=== PATIENT | female | born 1970 | race Caucasian/White ===

== ENCOUNTER 2024-07-24 16:21 | Emergency (ER) | payer BC, SELFPAY ==
[2024-07-24 16:24] VITALS: BP 115/74
[2024-07-24 16:38] LABS: % Basophils 0.1 % (0-2); % Eosinophils 6.4 % (0-6); % Immature Granulocytes 0.2 % (0-0.5); % Lymphocytes 19.1 % (20.5-51.1); % Monocytes 5.3 % (1.7-9.3); % Neutrophils 68.9 % (42.2-75.2); Absolute Eosinophils 0.6 10^3/uL (0-0.7); Absolute Lymphocytes 1.7 10^3/uL (1.2-3.4); Absolute Monocytes 0.5 10^3/uL (0.1-0.6); Absolute Neutrophils 6.1 10^3/uL (1.4-6.5); Hematocrit 39.7 % (37.0-47.0); Hemoglobin 13.8 g/dL (12.0-16.0); Mean Corp Hgb Conc. 34.8 g/dL (33.0-37.0); Mean Corpuscular Hgb 31.4 pg (27.0-31.0); Mean Corpuscular Volume 90.2 fL (81.0-99.0); Mean Platelet Volume 11.3 fL (7.4-10.4); Nucleated Red Blood Cells % 0 %; Platelet Count 218 10^3/uL (130-400); Red Cell Dist. Width 12.6 % (11.5-14.5); White Blood Cell Count 8.9 10^3/uL (4.8-10.8)
[2024-07-24 16:51] LABS: ALT (SGPT) 15 U/L (0-35); AST (SGOT) 17 U/L (14-36); Albumin 4.4 g/dl (3.5-5.0); Alkaline Phosphatase 70 U/L (38-126); Blood Urea Nitrogen 19 mg/dl (7-17); Calcium 9.1 mg/dl (8.4-10.2); Carbon Dioxide 29 mmol/L (22-30); Chloride 108 mmol/L (98-107); Glucose 106 mg/dl (70-99); Potassium 3.8 mmol/L (3.5-5.1); Sodium 142 mmol/L (135-145); Total Bilirubin 0.9 mg/dl (0.2-1.3); Total Protein 6.9 g/dl (6.3-8.2); eGFR > 60.00
[2024-07-24 17:28] VITALS: BP 116/91
--- NOTE | 2024-07-24 17:29 | ED.GENMED ---
History of Present Illness
General
Chief Complaint: Abdominal Symptoms
Source: patient
Exam Limitations: none
Time Seen by Provider: 07/24/24 17:15
Nursing documentation reviewed up to this point in time: agreed with
History of Present Illness
History of Present Illness:
Patient is a 53-year-old female with history asthma who presents to the emergency department with 1 week of nausea, vomiting, and anorexia. Patient states she has been unable to keep food or liquid down since last Tuesday and has been vomiting
about twice daily. In addition�she reports vague lower abdominal pain as well as very little appetite. She has had intermittent chills/hot flashes which she was attributing to perimenopause. She reports loose stools over the past week although
denies any hematochezia or melena. No urinary symptoms. No chest pain or shortness of breath.
Patient has been on Wegovy for a few years now. She recently increased her dose about 2 months ago and is currently at the maximum dose. She is felt somewhat unwell following the last few injections and is wondering if the symptoms may be related
to Wegovy. Her last injection was this past 07/20/24. This is prescribed by her primary care provider.
Patient denies any recent travel or recent surgeries. No antibiotics. No known sick contacts.
Patient had an ovarian cyst removed many years ago although denies any other abdominal surgeries.
Past History
Past History
ED Past Medical History: Other (Ovarian cysts)
ED Past Surgical History: None
Social History
Tobacco: Non-smoker
Drug: None
Living: with family
Employment: Employed
Family History
Family History: Other (No significant)
Review of Systems
Review of Systems
Allergies reviewed?: Yes
All Other Systems: ROS reviewed and negative except as documented in HPI and ROS
Phy Exam
Physical Exam
Physical Exam:
Vitals: Patient's vital signs are stable. Afebrile
General: Patient is well appearing, no acute distress. Nontoxic appearing
Skin: Warm and dry, no rashes or lesions
Head: Normocephalic, atraumatic
Eyes: Sclera nonicteric.
Throat: Protecting airway
Neck: Normal ROM, no cervical spine tenderness, no meningismus
Cardiac: Regular rate and rhythm, no murmurs.
Pulm: Normal respiratory effort, no wheezes, rales, rhonchi heard on exam
.
Abdomen: Abdomen soft. Mild tenderness in RLQ> LLQ. No rebound tenderness or guarding. Negative Snow sign.
Extremities: No evidence of cyanosis or edema
Neuro: AAOx3. CN II-XII intact. No focal neurologic deficits.
Psychiatric: Normal affect.
Course
Orders/Labs/Results
Orders:
Orders
07/24/24 16:28
Complete Blood Count/With Diff Urgent
Comprehensive Metabolic Panel Urgent
HCG, Serum Qualitative Screen Urgent
Comment: ADD ON
Lipase Urgent
Comment: ADD ON
07/24/24 17:27
Add On- LAB Urgent
Tests Added?: lipase
CT Abd/pelvis W Iv Cont Urgent
Comment:
Reason For Exam: RLQ pain, anorexia, vomiting
0.9% Sodium Chloride 1000 ml [Nss] 1,000 ml IV BOLUS
Ondansetron Injectable [Zofran] 4 mg IV NOW STA
07/24/24 17:28
Ketorolac [Toradol] 15 mg IV NOW STA
07/24/24 17:51
Electrocardiogram (*1) Urgent
Reason for Study: Abdominal Pain
EKG- Treatment ONCE
07/24/24 17:57
Add On- LAB Urgent
Tests Added?: serum hcg
07/24/24 19:23
Urinalysis Reflex To Culture Urgent
Date Specimen was Collected: 07/24/24
Time Specimen was Collected: 19:19
Urine Microscopic Reflex Cult Urgent
Urine Culture Urgent
BASSEM Source: U
Specimen Description:
Date Specimen was Collected: 07/24/24
Time Specimen was Collected: 19:19
07/24/24 20:09
0.9% Sodium Chloride 500 ml [Nss] 500 ml IV BOLUS
Metoclopramide [Reglan] 10 mg IV NOW STA
07/24/24 20:10
Diphenhydramine [Benadryl] 25 mg IV NOW STA
Abnormal Lab Results
07/24/24 07/24/24
16:28 19:23
MCH 31.4 H pg
(27.0-31.0)
MPV 11.3 H fL
(7.4-10.4)
Lymphocytes % 19.1 L %
(20.5-51.1)
Eosinophils % 6.4 H %
(0-6)
Chloride 108 H mmol/L
(98-107)
BUN 19 H mg/dl
(7-17)
Glucose 106 H mg/dl
(70-99)
Urine Bilirubin 1+ A
(Negative)
Urine Urobilinogen 2+ A
(Neg - 1+)
Leukocyte Esterase Rfl 1+ A
(Negative)
Urine Bacteria (Reflex) Few A
(Negative)
Urine Albumin (Reflex) 2+ A
(Neg - Trace)
07/24/24 16:28
07/24/24 16:28
Vital Signs
Initial and Last Documented VS:
Initial Vital Signs
Temp Pulse Resp BP Pulse Ox
98.5 F 76 16 115/74 96
07/24/24 16:24 07/24/24 16:24 07/24/24 16:24 07/24/24 16:24 07/24/24 16:24
Last Documented Vital Signs
Temp Pulse Resp BP Pulse Ox
98.5 F 83 19 140/87 96
07/24/24 16:24 07/24/24 21:32 07/24/24 21:32 07/24/24 21:32 07/24/24 21:32
MDM/Problems Addressed
Differential Diagnosis Includes:
Not limited to: Medication side effect, viral gastroenteritis, acute appendicitis, acute dehydration, bowel obstruction, etc.
MDM/Problems Addressed:
53-year-old female with history as documented presenting with 6 days of intractable nausea, vomiting, anorexia. No known fevers. She does report some mild lower abdominal pain. No urinary symptoms. No chest pain or shortness of breath. She did have
recent increase in Wegovy 1-2 months ago. Vitals and physical exam as above.
Differential broad although given tenderness in right lower abdomen, will check CT scan to rule out appendicitis or other acute intra-abdominal process. Lab work obtained in triage relatively unremarkable other than findings of mild dehydration.
Will check lipase and urinalysis. Will give IV fluids, IV Zofran and reasses.
Update: CT scan without any acute abnormalities. Lipase is normal. Unfortunately � patient vomited immediately following PO challenge. Will give IV Reglan, another 500 of IV fluids and reassess. Urine does not appear obviously infected and pt has no
urinary complaints. Will hold abx pending culture
Update: Patient feeling better after IV reglan and was able to tolerate water and crackers without nausea/vomiting. Ultimately � workup in emergency department negative. Much lower suspicion for acute intra-abdominal infection given patient is
afebrile with no leukocytosis and normal CT scan. Symptoms possibly secondary to Wegovy or a viral illness. Discussed admission for IV hydration, IV antiemetics with patient although patient prefers discharge home. Advised patient to stay well
hydrated with very strict return precautions. Discussed d/c Wegovy until cleared by primary care. Patient comfortable with plan. She will follow with primary care outpatient.
Chronic conditions affecting care:
N/A
Acute Exacerbation and/or Progression of Chronic Illness:
N/A
*Radiology
Radiology exam reviewed: radiology read reviewed
*Pulse Oximetry
Patient hypoxic: no
*EKG
Interpreted by ED Provider?: NA
*Management Expert Interpretation
Rate: Management Expert- N/A
*Critical Care Note
Total Time (30-74mins, 75-104mins- exclusive of procedures): Not Applicable
ED Attending Note
-
Portions of this chart may have been created with voice recognition software.� Occasional wrong word or��sound alike� substitutions may have occurred due to the inherent limitations of voice recognition software.
Discharge Plan
Departure
Patient Disposition: Home (Routine Discharge)
Date of Disposition: 07/24/24
Time of Disposition: 21:24
Patient with high blood pressure during this ER visit?: Yes
Condition: Good
Covid-19: Not Applicable
Discharge Problem:
Nausea & vomiting
Instructions: Dehydration, Adult (DC), Nausea and Vomiting, Adult (DC), BLOOD PRESSURE
Prescriptions:
New
metoclopramide HCl [Reglan] 10 mg tablet
10 mg PO Q6H PRN (Reason: nausea and vomiting) Qty: 7 0RF
Referrals:
Jennifer Snow PA-C [Family Provider] -
Activity Restrictions/Additional Instructions:
RETURN TO THE EMERGENCY DEPARTMENT ANY FEVERS/CHILLS, INTRACTABLE NAUSEA/VOMITING, PERSISTENT ABDOMINAL PAIN, SIGNS OF SEVERE DEHYDRATION, PERSISTENT LACK OF APPETITE, WORSENING CURRENT SYMPTOMS, OR ANY OTHER CONCERNS
-As discussed�your lab work and CT scan to the emergency department showed no acute abnormalities. You were given a liter of IV fluids, IV Zofran, and IV Reglan.
- It is important stay very well-hydrated. I would recommend a bland diet over the next few days.
- A prescription for Reglan has been sent to your pharmacy. You can take this as needed for persistent nausea/vomiting.
- Please avoid any further Wegovy injections until cleared by primary care.
- Follow-up with primary care for further evaluation/management to ensure that symptoms are improving
Monitor your symptoms closely and return to the emergency department with any acute worsening/new symptoms or any other concerns
Interventions
Interventions:
*Risk Screen - Suicide Last Done: 07/24/24 17:31
*General Assessment Last Done: 07/24/24 17:31
*Neglect/Abuse Screening Last Done: 07/24/24 17:31
*ED- Fall Risk Assessment Last Done: 07/24/24 21:33
*ED COVID-19 Vaccine History Last Done: 07/24/24 17:31
*Nursing Disposition Last Done: 07/24/24 21:33
LH-Vgjycj-Bhvzjxpcov Assessment Last Done: 07/24/24 17:51
Discharge Date and Time
Discharge Date/Time: 07/24/24 21:40
Print Language: SAMI
[2024-07-24] MEDS: ZOFRAN 4 MG IV (17:42)
[2024-07-24] MEDS: NSS 1000 IV (17:43)
[2024-07-24] MEDS: TORADOL 15 MG IV (17:43)
[2024-07-24 18:09] LABS: Lipase 60 U/L (23-300)
[2024-07-24 18:32] LABS: HCG, Serum Qualitative Screen Negative
[2024-07-24 19:00] VITALS: BP 131/82
[2024-07-24 19:35] LABS: Urine Albumin 2+ (Neg - Trace); Urine Bilirubin 1+ (Negative); Urine Character Clear (Clear); Urine Color Amber; Urine Glucose Negative (Negative); Urine Ketone Negative (Negative); Urine Leukocyte 1+ (Negative); Urine Nitrite Negative (Negative); Urine Occult Blood Negative (Negative); Urine Specific Gravity 1.005 (<1.030); Urine Urobilinogen 2+ (Neg - 1+)
[2024-07-24 19:49] LABS: Urine Mucus Few; Urine Squamous Cell >30 /LPF (Few)
[2024-07-24 19:50] LABS: Urine Bacteria Few (Negative); Urine Calcium Oxalate Crystals Present; Urine Hyaline Cast 0-2 /LPF (0-2); Urine Red Blood Cell 0-2 /HPF (0-2)
[2024-07-24 20:00] VITALS: BP 151/100
[2024-07-24] MEDS: REGLAN 10 MG IV (20:18)
[2024-07-24] MEDS: NSS 500 IV (20:18)
[2024-07-24] MEDS: BENADRYL 25 MG IV (20:18)
[2024-07-24 21:00] VITALS: BP 138/117
[2024-07-24 21:32] VITALS: BP 140/87
== END 2024-07-24 21:40 | disposition home or self-care (01) ==
LOC: EMR 16:21
PROVIDERS: Emergency Medicine; Physician Assistant; EMERGENCY PHYSICIAN Emergency Medicine; FAMILY PHYSICIAN Physician Assistant Medical
DX: R11.2 Nausea with vomiting, unspecified (principal); J45.909 Unspecified asthma, uncomplicated; E86.0 Dehydration
CPT/HCPCS: 99284; 96374; 96375; 96361; 74177; 80053; 81003; 81015; 83690; 84703; 85025; 87086; 93005; Q9967

== ENCOUNTER → 2024-08-14 11:01 | Outpatient (REF) | payer BC, SELFPAY | LOC: WDC 11:01 | PROVIDERS: ATTENDING PHYSICIAN Physician Assistant Medical | DX: Z12.31 Encounter for screening mammogram for malignant neoplasm of breast (principal) | CPT/HCPCS: 77063; 77067 ==

== ENCOUNTER 2024-09-17 06:19 | Day surgery (SDC) | payer BC, SELFPAY | END 2024-09-17 12:31 | disposition home or self-care (01) | LOC: GI 06:19 | PROVIDERS: ATTENDING PHYSICIAN Internal Medicine Gastroenterology | DX: Z12.11 Encounter for screening for malignant neoplasm of colon (principal); D12.4 Benign neoplasm of descending colon; D12.5 Benign neoplasm of sigmoid colon; K57.30 Diverticulosis of large intestine without perforation or abscess without bleeding; Z80.0 Family history of malignant neoplasm of digestive organs | CPT/HCPCS: 45385; 88305 ==